=== PATIENT | female | born 1985 | race Caucasian/White ===

== ENCOUNTER 2019-02-19 06:33 | Day surgery (SDC) | payer OTHER ==
[2019-02-19 07:35] VITALS: BMI 58.1
--- NOTE | 2019-02-19 07:44 | HP ---
CHIEF COMPLAINT: Major depressive disorder PCP: Alana Bobby Primary Psychiatrist: Dr. Dozier HISTORY OF PRESENT ILLNESS: 33 year-old female with a PMH significant for major depression, bipolar disorder , polycystic ovarian disease, asthma, hypothyroidism, obesity, and h/o pulmonary embolism 2010 not presently on anticoagulation. First underwent ECT in 2013. She presents today for ECT. Recent Events: * none reported PAST MEDICAL HISTORY: Depressive disorder Bipolar disorder Polycystic ovarian disease Hypoglycemia Asthma GERD Hypothyroidism Obesity h/o pulmonary embolism 2010 (provoked by OCP, on a/c for 6 months) PAST SURGICAL HISTORY: Hand surgery Lumbar disc surgery Social History: Smoking: former Alcohol: no Drugs: no Allergies corn [[place]] Allergy (Verified 01/11/19 12:19) Rash peanut Allergy (Verified 01/11/19 12:19) Rash Penicillins Allergy (Verified 01/11/19 12:19) Rash bupropion HCl [From Wellbutrin] Adverse Reaction (Verified 01/11/19 12:19) duloxetine HCl [From Cymbalta] Adverse Reaction (Verified 01/11/19 12:19) lamotrigine [From Lamictal] Adverse Reaction (Verified 01/11/19 12:19) nortriptyline HCl [From Pamelor] Adverse Reaction (Verified 01/11/19 12:19) trazodone Adverse Reaction (Verified 01/11/19 12:19) zolpidem tartrate [From Ambien] Adverse Reaction (Verified 01/11/19 12:19) ALL ANTIDEPRESSANTS Adverse Reaction (Severe, Uncoded 01/11/19 12:33) "MAKES PT SUICIDAL" HOME MEDICATIONS: Home Medications Medication Instructions Recorded Quetiapine Fumarate [Seroquel -] 300 mg PO HS 06/17/14 Gabapentin [Neurontin] 600 mg PO BID 01/11/19 [place] Carbonate [Eskalith -] 450 mg PO DAILY 01/11/19 [place] Carbonate [Eskalith -] 900 mg PO HS 01/11/19 Diazepam [Valium] 5 mg PO Q6H 02/15/19 Pantoprazole Sodium 40 mg PO DAILY 02/15/19 REVIEW OF SYSTEMS CONSTITUTIONAL: Absent: fever, chills, diaphoresis, generalized weakness, malaise, loss of appetite, weight change HEENT: Absent: rhinorrhea, nasal congestion, throat pain, throat swelling, difficulty swallowing, mouth swelling, ear pain, eye pain, visual changes CARDIOVASCULAR: Absent: chest pain, syncope, palpitations, irregular heart rate, lightheadedness , peripheral edema RESPIRATORY: Absent: cough, shortness of breath, dyspnea with exertion, orthopnea, wheezing, stridor, hemoptysis GASTROINTESTINAL: Absent: abdominal pain, abdominal distension, nausea, vomiting, diarrhea, constipation, melena, hematochezia GENITOURINARY: Absent: dysuria, frequency, urgency, hesitancy, hematuria, flank pain, genital pain MUSCULOSKELETAL: Absent: myalgia, arthralgia, joint swelling, back pain, neck pain SKIN: Absent: rash, itching, pallor HEMATOLOGIC/IMMUNOLOGIC: Absent: easy bleeding, easy bruising, lymphadenopathy, frequent infections ENDOCRINE: Absent: unexplained weight gain, unexplained weight loss, heat intolerance, cold intolerance NEUROLOGIC: Absent: headache, focal weakness or paresthesias, dizziness, unsteady gait, seizure, mental status changes, bladder or bowel incontinence PHYSICAL EXAMINATION Vital Signs Temperature 98.2 F 02/19/19 07:25 Pulse Rate 76 02/19/19 07:25 Respiratory Rate 18 02/19/19 07:25 Blood Pressure 118/73 02/19/19 07:25 O2 Sat by Pulse Oximetry (%) 96 02/19/19 07:25 GENERAL: Awake, alert, and fully oriented, in no acute distress. HEAD: Normal with no signs of trauma. EYES: Pupils equal, round and reactive to light, sclera anicteric, conjunctiva clear. LUNGS: Breath sounds equal, clear to auscultation bilaterally. No wheezes, and no crackles. No accessory muscle use. HEART: Regular rate and rhythm, normal S1 and S2 ABDOMEN: Soft, nontender, not distended MUSCULOSKELETAL: Normal range of motion at all joints. No bony deformities or tenderness. No CVA tenderness. UPPER EXTREMITIES: 2+ pulses, warm, well-perfused. No cyanosis. No clubbing. No peripheral edema. LOWER EXTREMITIES: 2+ pulses, warm, well-perfused. No calf tenderness. No peripheral edema. NEUROLOGICAL: Cranial nerves II-XII intact. Normal speech. ASSESSMENT/PLAN: 33 year-old female with a PMH significant for major depression, bipolar disorder , polycystic ovarian disease, asthma, hypothyroidism, obesity, and h/o pulmonary embolism 2011 not presently on anticoagulation. She presents today for ECT. Cardiac --no cardiac history --Revised Cardiac Risk Index for Pre-Operative Risk: 0 points, 0.4% risk of major cardiac event Pulmonary --asthma as a child; no recent exacerbations; not on meds Neurological --no neurological or neurosurgical history; no history of trauma Anesthesia --no reported problems with anesthesia ECT is a low risk procedure. The relative benefits of the planned procedure outweigh the relative risks for this patient at this time. Visit type - Emergency Visit Emergency Visit: No - New Patient This patient is new to me today: Yes Date on this admission: 02/19/19 - Critical Care Critical Care patient: No
[2019-02-19] MEDS ORDERED: KETAMINE HCL 500 MG/10 ML VIAL ONE (08:26)
[2019-02-19 09:59] VITALS: TEMP 98.9
[2019-02-19 10:01] VITALS: BP 122/72; PULSE 87
== END 2019-02-19 10:00 | disposition home or self-care (01) ==
LOC: FECT 06:33
PROVIDERS: ATTEND Psychiatry & Neurology Psychiatry
PROC: GZB4ZZZ Other Electroconvulsive Therapy (ICD-10-PCS; principal; 2019-02-19)
DX: F32.9 Major depressive disorder, single episode, unspecified (principal)
CPT/HCPCS: 84703; 90870; 94760

== ENCOUNTER 2019-02-25 05:46 | Day surgery (SDC) | payer OTHER ==
[2019-02-25 06:46] VITALS: TEMP 98.2; BMI 58.1
[2019-02-25] MEDS ORDERED: KETAMINE HCL 500 MG/10 ML VIAL ONE (07:06)
[2019-02-25] MEDS ORDERED: LACTATED RINGERS SOLUTION 1,000 ML IV SCH (07:15)
[2019-02-25 08:33] VITALS: BP 110/77; PULSE 94
== END 2019-02-25 08:20 | disposition home or self-care (01) ==
LOC: FECT 05:46
PROVIDERS: ATTEND Psychiatry & Neurology Psychiatry
PROC: GZB4ZZZ Other Electroconvulsive Therapy (ICD-10-PCS; principal; 2019-02-25 07:45)
DX: F32.9 Major depressive disorder, single episode, unspecified (principal)
CPT/HCPCS: 81025; 90870; 94760

== ENCOUNTER 2019-03-06 06:53 | Day surgery (SDC) | payer OTHER ==
[2019-03-06 06:48] VITALS: BMI 58.1
[2019-03-06] MEDS ORDERED: KETAMINE HCL 500 MG/10 ML VIAL ONE (07:28)
[2019-03-06 08:42] VITALS: TEMP 98.9
[2019-03-06 08:43] VITALS: BP 115/75; PULSE 91
[2019-03-06] MEDS ORDERED: PROMETHAZINE HCL 25 MG/1 ML VIAL IVPUSH PRN (09:47)
[2019-03-06] MEDS ORDERED: ACETAMINOPHEN 325 MG TABLET (FP) PO PRN (09:47)
[2019-03-06] MEDS ORDERED: LACTATED RINGERS SOLUTION 1,000 ML IV SCH (10:00)
== END 2019-03-06 08:45 | disposition home or self-care (01) ==
LOC: FECT 06:53
PROVIDERS: ATTEND Psychiatry & Neurology Psychiatry
PROC: GZB4ZZZ Other Electroconvulsive Therapy (ICD-10-PCS; principal; 2019-03-06 07:30)
DX: F32.9 Major depressive disorder, single episode, unspecified (principal)
CPT/HCPCS: 81025; 90870; 94760

== ENCOUNTER 2019-04-18 05:47 | Day surgery (SDC) | payer OTHER ==
[2019-04-15 10:46] VITALS: BMI 58.1
--- NOTE | 2019-04-18 07:22 | HP ---
CHIEF COMPLAINT: PCP: Primary Psychiatrist: Dr. Heather Freeman [facility] HISTORY OF PRESENT ILLNESS: Recent Events: PAST MEDICAL HISTORY: PAST SURGICAL HISTORY: Social History: lives in [place] with mother; attends [employer], two courses short of BA in Human Services and psych; starts in Apr, will be done by Nick Smoking: no Alcohol: no Drugs: no Family history: non-contributory Allergies corn [[place]] Allergy (Verified 03/05/19 11:28) Rash peanut Allergy (Verified 03/05/19:28) Rash Penicillins Allergy (Verified 03/05/19:28) Rash bupropion HCl [From Wellbutrin] Adverse Reaction (Verified 03/05/19 11:28) duloxetine HCl [From Cymbalta] Adverse Reaction (Verified 03/05/19 11:28) lamotrigine [From Lamictal] Adverse Reaction (Verified 03/05/19 11:28) nortriptyline HCl [From Pamelor] Adverse Reaction (Verified 03/05/19:28) trazodone Adverse Reaction (Verified 03/05/19:28) zolpidem tartrate [From Ambien] Adverse Reaction (Verified 03/05/19 11:28) ALL ANTIDEPRESSANTS Adverse Reaction (Severe, Uncoded 03/05/19:28) "MAKES PT SUICIDAL" HOME MEDICATIONS: Home Medications Medication Instructions Recorded Quetiapine Fumarate [Seroquel -] 300 mg PO HS 06/17/14 Gabapentin [Neurontin] 600 mg PO BID 01/11/19 [place] Carbonate [Eskalith -] 450 mg PO DAILY 01/11/19 [place] Carbonate [Eskalith -] 900 mg PO HS 01/11/19 Diazepam [Valium] 5 mg PO Q6H 02/15/19 Pantoprazole Sodium 40 mg PO DAILY 02/15/19 REVIEW OF SYSTEMS CONSTITUTIONAL: Absent: fever, chills, diaphoresis, generalized weakness, malaise, loss of appetite, weight change HEENT: Absent: rhinorrhea, nasal congestion, throat pain, throat swelling, difficulty swallowing, mouth swelling, ear pain, eye pain, visual changes CARDIOVASCULAR: Absent: chest pain, syncope, palpitations, irregular heart rate, lightheadedness , peripheral edema RESPIRATORY: Absent: cough, shortness of breath, dyspnea with exertion, orthopnea, wheezing, stridor, hemoptysis GASTROINTESTINAL: Absent: abdominal pain, abdominal distension, nausea, vomiting, diarrhea, constipation, melena, hematochezia GENITOURINARY: Absent: dysuria, frequency, urgency, hesitancy, hematuria, flank pain, genital pain MUSCULOSKELETAL: Absent: myalgia, arthralgia, joint swelling, back pain, neck pain SKIN: Absent: rash, itching, pallor HEMATOLOGIC/IMMUNOLOGIC: Absent: easy bleeding, easy bruising, lymphadenopathy, frequent infections ENDOCRINE: Absent: unexplained weight gain, unexplained weight loss, heat intolerance, cold intolerance NEUROLOGIC: Absent: headache, focal weakness or paresthesias, dizziness, unsteady gait, seizure, mental status changes, bladder or bowel incontinence PHYSICAL EXAMINATION Vital Signs - 24 hr 04/18/19 07:03 Temperature 99.6 F Pulse Rate 112 H Respiratory 18 Rate Blood Pressure 135/86 O2 Sat by Pulse 98 Oximetry (%) GENERAL: Awake, alert, and fully oriented, in no acute distress. HEAD: Normal with no signs of trauma. EYES: Pupils equal, round and reactive to light, sclera anicteric, conjunctiva clear. LUNGS: Breath sounds equal, clear to auscultation bilaterally. No wheezes, and no crackles. No accessory muscle use. HEART: Regular rate and rhythm, normal S1 and S2 ABDOMEN: Soft, nontender, not distended MUSCULOSKELETAL: Normal range of motion at all joints. No bony deformities or tenderness. No CVA tenderness. UPPER EXTREMITIES: 2+ pulses, warm, well-perfused. No cyanosis. No clubbing. No peripheral edema. LOWER EXTREMITIES: 2+ pulses, warm, well-perfused. No calf tenderness. No peripheral edema. NEUROLOGICAL: Cranial nerves II-XII intact. Normal speech. ASSESSMENT/PLAN: Cardiac --no cardiac history --Revised Cardiac Risk Index for Pre-Operative Risk: 0 points, 0.4% risk of major cardiac event Pulmonary --no pulmonary history Neurological --no neurological or neurosurgical history; no history of trauma Anesthesia --no reported problems with anesthesia ECT is a low risk procedure. The relative benefits of the planned procedure outweigh the relative risks for this patient at this time.
[2019-04-18] MEDS ORDERED: oxyCODONE HCL 5 MG TABLET PO PRN (07:27)
[2019-04-18] MEDS ORDERED: ONDANSETRON 4 MG/2 ML VIAL IVPUSH PRN (07:27)
[2019-04-18] MEDS ORDERED: KETAMINE HCL 500 MG/10 ML VIAL ONE (07:42)
[2019-04-18 09:23] VITALS: TEMP 97.7
[2019-04-18 09:30] VITALS: BP 135/85; PULSE 90
== END 2019-04-18 09:15 | disposition home or self-care (01) ==
LOC: FECT 05:47
PROVIDERS: ATTEND Psychiatry & Neurology Psychiatry
PROC: GZB4ZZZ Other Electroconvulsive Therapy (ICD-10-PCS; principal; 2019-04-18 07:15)
DX: F33.2 Major depressive disorder, recurrent severe without psychotic features (principal)
CPT/HCPCS: 81025; 90870; 94760

== ENCOUNTER 2019-04-24 05:41 | Day surgery (SDC) | payer OTHER ==
[2019-04-18 15:23] VITALS: BMI 58.1
[2019-04-24 06:37] VITALS: TEMP 97.7
[2019-04-24] MEDS ORDERED: KETAMINE HCL 500 MG/10 ML VIAL ONE (06:52)
[2019-04-24] MEDS ORDERED: LACTATED RINGERS SOLUTION 1,000 ML IV SCH (07:45)
[2019-04-24 08:16] VITALS: BP 111/73; PULSE 88
== END 2019-04-24 08:05 | disposition home or self-care (01) ==
LOC: FECT 05:41
PROVIDERS: ATTEND Psychiatry & Neurology Psychiatry
PROC: GZB4ZZZ Other Electroconvulsive Therapy (ICD-10-PCS; principal; 2019-04-24 07:15)
DX: F32.9 Major depressive disorder, single episode, unspecified (principal)
CPT/HCPCS: 81025; 90870; 94760

== ENCOUNTER 2019-05-16 06:46 | Day surgery (SDC) | payer OTHER ==
[2019-05-16 07:31] VITALS: BMI 58.1
[2019-05-16] MEDS ORDERED: LORazepam 0.5 MG TABLET ONE (07:35)
[2019-05-16] MEDS ORDERED: KETAMINE HCL 500 MG/10 ML VIAL ONE (08:49)
[2019-05-16 10:07] VITALS: TEMP 98.9
[2019-05-16 10:30] VITALS: BP 133/84; PULSE 85
== END 2019-05-16 10:35 | disposition home or self-care (01) ==
LOC: FECT 06:46
PROVIDERS: ATTEND Psychiatry & Neurology Psychiatry
PROC: GZB4ZZZ Other Electroconvulsive Therapy (ICD-10-PCS; principal; 2019-05-16 09:30)
DX: F32.9 Major depressive disorder, single episode, unspecified (principal)
CPT/HCPCS: 84703; 90870; 94760

== ENCOUNTER 2019-05-31 05:55 | Day surgery (SDC) | payer OTHER ==
[2019-05-31] MEDS ORDERED: LORazepam 0.5 MG TABLET ONE (07:10)
[2019-05-31 07:29] VITALS: TEMP 98; BMI 58.1
[2019-05-31] MEDS ORDERED: KETAMINE HCL 500 MG/10 ML VIAL ONE (07:46)
[2019-05-31 09:13] VITALS: BP 139/85; PULSE 88
--- NOTE | 2019-05-31 17:39 | HP ---
CHIEF COMPLAINT: Major depressive disorder PCP: Dr. Thomas Alatorre [place] Primary Psychiatrist: Dr. Heather Freeman [facility] HISTORY OF PRESENT ILLNESS: 33 year-old female with a PMH significant for major depression, bipolar disorder , polycystic ovarian disease, asthma, hypothyroidism, obesity, and h/o pulmonary embolism 2010 not presently on anticoagulation. First underwent ECT in 2013. She presents today for ECT. Recent Events: * none reported PAST MEDICAL HISTORY: Depressive disorder Bipolar disorder Polycystic ovarian disease Hypoglycemia Asthma GERD Hypothyroidism Obesity h/o pulmonary embolism 2010 (provoked by OCP, on a/c for 6 months) PAST SURGICAL HISTORY: Hand surgery Lumbar disc surgery Social History: lives in [place] with mother; attends [employer], two courses short of BA in Human Services and psych; starts in May, will be done by Nick Smoking: no Alcohol: no Drugs: no Family history: Mother 61 kidney cancer; father unknown; brother 33 a&w Allergies corn [[place]] Allergy (Verified 03/05/19 11:28) Rash peanut Allergy (Verified 03/05/19 11:28) Rash Penicillins Allergy (Verified 03/05/19 11:28) Rash bupropion HCl [From Wellbutrin] Adverse Reaction (Verified 03/05/19 11:28) duloxetine HCl [From Cymbalta] Adverse Reaction (Verified 03/05/19 11:28) lamotrigine [From Lamictal] Adverse Reaction (Verified 03/05/19 11:28) nortriptyline HCl [From Pamelor] Adverse Reaction (Verified 03/05/19 11:28) trazodone Adverse Reaction (Verified 03/05/19 11:28) zolpidem tartrate [From Ambien] Adverse Reaction (Verified 03/05/19 11:28) ALL ANTIDEPRESSANTS Adverse Reaction (Severe, Uncoded 03/05/19 11:28) "MAKES PT SUICIDAL" HOME MEDICATIONS: Home Medications Medication Instructions Recorded Quetiapine Fumarate [Seroquel -] 300 mg PO HS 06/17/14 Gabapentin [Neurontin] 600 mg PO BID 01/11/19 [place] Carbonate [Eskalith -] 450 mg PO DAILY 01/11/19 [place] Carbonate [Eskalith -] 900 mg PO HS 01/11/19 Diazepam [Valium] 5 mg PO Q6H 02/15/19 Pantoprazole Sodium 40 mg PO DAILY 02/15/19 REVIEW OF SYSTEMS CONSTITUTIONAL: Absent: fever, chills, diaphoresis, generalized weakness, malaise, loss of appetite, weight change HEENT: Absent: rhinorrhea, nasal congestion, throat pain, throat swelling, difficulty swallowing, mouth swelling, ear pain, eye pain, visual changes CARDIOVASCULAR: Absent: chest pain, syncope, palpitations, irregular heart rate, lightheadedness , peripheral edema RESPIRATORY: Absent: cough, shortness of breath, dyspnea with exertion, orthopnea, wheezing, stridor, hemoptysis GASTROINTESTINAL: Absent: abdominal pain, abdominal distension, nausea, vomiting, diarrhea, constipation, melena, hematochezia GENITOURINARY: Absent: dysuria, frequency, urgency, hesitancy, hematuria, flank pain, genital pain MUSCULOSKELETAL: Absent: myalgia, arthralgia, joint swelling, back pain, neck pain SKIN: Absent: rash, itching, pallor HEMATOLOGIC/IMMUNOLOGIC: Absent: easy bleeding, easy bruising, lymphadenopathy, frequent infections ENDOCRINE: Absent: unexplained weight gain, unexplained weight loss, heat intolerance, cold intolerance NEUROLOGIC: Absent: headache, focal weakness or paresthesias, dizziness, unsteady gait, seizure, mental status changes, bladder or bowel incontinence PHYSICAL EXAMINATION Vital Signs - 24 hr 05/31/19 05/31/19 05/31/19 07:23 08:09 08:10 Temperature 98.0 F Pulse Rate 89 100 H 99 H Respiratory 18 22 H 18 Rate Blood Pressure 146/79 162/99 134/83 O2 Sat by Pulse 95 100 99 Oximetry (%) 05/31/19 05/31/19 05/31/19 08:15 08:20 08:30 Temperature Pulse Rate 93 H 91 H 93 H Respiratory 22 H 20 18 Rate Blood Pressure 130/87 141/73 138/73 O2 Sat by Pulse 97 97 97 Oximetry (%) 05/31/19 05/31/19 05/31/19 08:32 08:40 09:10 Temperature 98.0 F 98.0 F Pulse Rate 93 H 86 88 Respiratory 18 18 18 Rate Blood Pressure 138/73 136/83 139/85 O2 Sat by Pulse 97 94 L 97 Oximetry (%) 05/31/19 09:15 Temperature 98.0 F Pulse Rate 88 Respiratory 18 Rate Blood Pressure 139/85 O2 Sat by Pulse Oximetry (%) GENERAL: Awake, alert, and fully oriented, in no acute distress. HEAD: Normal with no signs of trauma. EYES: Pupils equal, round and reactive to light, sclera anicteric, conjunctiva clear. LUNGS: Breath sounds equal, clear to auscultation bilaterally. No wheezes, and no crackles. No accessory muscle use. HEART: Regular rate and rhythm, normal S1 and S2 ABDOMEN: Soft, nontender, not distended MUSCULOSKELETAL: Normal range of motion at all joints. No bony deformities or tenderness. No CVA tenderness. UPPER EXTREMITIES: 2+ pulses, warm, well-perfused. No cyanosis. No clubbing. No peripheral edema. LOWER EXTREMITIES: 2+ pulses, warm, well-perfused. No calf tenderness. No peripheral edema. NEUROLOGICAL: Cranial nerves II-XII intact. Normal speech. ASSESSMENT/PLAN: 33 year-old female with a PMH significant for major depression, bipolar disorder , polycystic ovarian disease, asthma, hypothyroidism, obesity, and h/o pulmonary embolism 2011 not presently on anticoagulation. She presents today for ECT. Cardiac --no cardiac history --Revised Cardiac Risk Index for Pre-Operative Risk: 0 points, 0.4% risk of major cardiac event Pulmonary --no pulmonary history Neurological --no neurological or neurosurgical history; no history of trauma Anesthesia --no reported problems with anesthesia ECT is a low risk procedure. The relative benefits of the planned procedure outweigh the relative risks for this patient at this time. Visit type - Emergency Visit Emergency Visit: No - New Patient This patient is new to me today: Yes Date on this admission: 05/31/19 - Critical Care Critical Care patient: No
== END 2019-05-31 09:15 | disposition home or self-care (01) ==
LOC: FECT 05:55
PROVIDERS: ATTEND Psychiatry & Neurology Psychiatry
PROC: GZB4ZZZ Other Electroconvulsive Therapy (ICD-10-PCS; principal; 2019-05-31 07:45)
DX: F33.2 Major depressive disorder, recurrent severe without psychotic features (principal)
CPT/HCPCS: 81025; 90870; 94760

== ENCOUNTER 2019-06-04 05:35 | Day surgery (SDC) | payer OTHER ==
[2019-05-31 12:50] VITALS: BMI 58.1
[2019-06-04] MEDS ORDERED: LORazepam 0.5 MG TABLET ONE (06:29)
[2019-06-04] MEDS ORDERED: KETAMINE HCL 500 MG/10 ML VIAL ONE (07:07)
[2019-06-04 08:21] VITALS: TEMP 98.9
[2019-06-04 08:44] VITALS: BP 122/77; PULSE 89
== END 2019-06-04 08:35 | disposition home or self-care (01) ==
LOC: FECT 05:35
PROVIDERS: ATTEND Psychiatry & Neurology Psychiatry
PROC: GZB4ZZZ Other Electroconvulsive Therapy (ICD-10-PCS; principal; 2019-06-04 07:30)
DX: F33.2 Major depressive disorder, recurrent severe without psychotic features (principal)
CPT/HCPCS: 81025; 90870; 94760